=== PATIENT | female | born 1985 | race Asian ===

== ENCOUNTER 2024-02-24 09:06 | Emergency (ER) | payer OTHER ==
[~2024-02-24] VITALS: Ht 162.6 cm; Wt 55.3 kg
[2024-02-24 09:08] VITALS: O2SAT 100
[2024-02-24] MEDS ORDERED: RABIES IMMUNE GLOBULIN/PF 300 UNIT/ML 2 ML VIAL IM ONE ×3 (09:26→10:08)
[2024-02-24] MEDS ORDERED: TDAP DIPH,PERTUSS,TET VAC/PF 0.5 ML DISP.SYRIN IM ONE (09:45)
[2024-02-24] MEDS: TDAP DIPH,PERTUSS,TET VAC/PF 0.5 ML DISP.SYRIN IM ONE (09:45)
[2024-02-24] MEDS: RABIES VACCINE (PCEC)/PF 2.5 UNIT ML IM ONE (09:55)
[2024-02-24] MEDS: RABIES IMMUNE GLOBULIN/PF 300 UNIT/ML 2 ML VIAL IM ONE (10:00)
== END 2024-02-24 10:25 | disposition home or self-care (01) ==
LOC: ER 09:06
DX: S91.051A Open bite, right ankle, initial encounter (principal); Z88.0 Allergy status to penicillin; W64.XXXA Exposure to other animate mechanical forces, initial encounter; Y93.89 Activity, other specified; Y92.89 Other specified places as the place of occurrence of the external cause; Y99.8 Other external cause status
CPT/HCPCS: 70030-TC; 90376; 90715; A4606; A4663

== ENCOUNTER 2024-02-27 09:33 | Emergency (ER) | payer OTHER ==
[~2024-02-27] VITALS: Ht 160 cm; Wt 55.3 kg
[2024-02-27] MEDS ORDERED: NEOMY/BACITRA/POLYMYXIN B OINT UD PACKET TP ONE (09:49)
[2024-02-27] MEDS: RABIES VACCINE (PCEC)/PF 2.5 UNIT ML IM ONE (10:12)
[2024-02-27] MEDS: NEOMY/BACITRA/POLYMYXIN B OINT UD PACKET TP ONE (10:13)
[2024-02-27 10:15] VITALS: BP 135/66; TEMP 98.3; O2SAT 98
== END 2024-02-27 10:15 | disposition home or self-care (01) ==
LOC: ER 09:38
DX: Z23 Encounter for immunization (principal); Z88.0 Allergy status to penicillin
CPT/HCPCS: A4606; A4663

== ENCOUNTER 2024-03-02 10:29 | Emergency (ER) | payer OTHER ==
[~2024-03-02] VITALS: Ht 160 cm; Wt 55.8 kg
[2024-03-02] MEDS ORDERED: NEOMY/BACITRAC/POLYMI OINT 28.35 GM TUBE ONE (10:44)
[2024-03-02] MEDS ORDERED: RABIES VACCINE (PCEC)/PF 2.5 UNIT ML IM ONE (10:45)
[2024-03-02] MEDS: RABIES VACCINE (PCEC)/PF 2.5 UNIT ML IM ONE (11:06)
[2024-03-02] MEDS: NEOMY/BACITRA/POLYMYXIN B OINT UD PACKET TP ONE (11:06)
[2024-03-02 11:14] VITALS: BP 133/80; TEMP 97; O2SAT 99
== END 2024-03-02 11:14 | disposition home or self-care (01) ==
LOC: ER 10:29
DX: S91.031D Puncture wound without foreign body, right ankle, subsequent encounter (principal); Z88.0 Allergy status to penicillin; W64.XXXD Exposure to other animate mechanical forces, subsequent encounter; Y93.89 Activity, other specified; Y92.89 Other specified places as the place of occurrence of the external cause; Y99.8 Other external cause status
CPT/HCPCS: A4606; A4663

== ENCOUNTER 2024-03-09 11:05 | Emergency (ER) | payer OTHER ==
[~2024-03-09] VITALS: Ht 160 cm; Wt 55.8 kg
[2024-03-09] MEDS ORDERED: RABIES VACCINE (PCEC)/PF 2.5 UNIT ML IM ONE (11:25)
[2024-03-09] MEDS: RABIES VACCINE (PCEC)/PF 2.5 UNIT ML IM ONE (11:33)
[2024-03-09 11:37] VITALS: BP 124/78; O2SAT 99
== END 2024-03-09 11:37 | disposition home or self-care (01) ==
LOC: ER 11:05
DX: Z23 Encounter for immunization (principal); Z88.0 Allergy status to penicillin
CPT/HCPCS: A4606; A4663